=== PATIENT | female | born 1980 | race Caucasian/White ===

== ENCOUNTER 2022-01-19 08:15 | Emergency (ER) | payer OTHER | END 2022-01-19 10:04 | disposition left against medical advice (07) | LOC: ER1 08:15 | DX: T17.228A Food in pharynx causing other injury, initial encounter (principal); F17.200 Nicotine dependence, unspecified, uncomplicated; X58.XXXA Exposure to other specified factors, initial encounter | CPT/HCPCS: 99283 ==

== ENCOUNTER 2022-04-27 22:29 | Emergency (ER) | payer OTHER | END 2022-04-28 02:09 | disposition home or self-care (01) | LOC: ER1 22:29 | DX: S01.01XA Laceration without foreign body of scalp, initial encounter (principal); S01.81XA Laceration without foreign body of other part of head, initial encounter; W01.10XA Fall on same level from slipping, tripping and stumbling with subsequent striking against unspecified object, initial encounter | CPT/HCPCS: 12011; 70450; 72125; 99283 ==

== ENCOUNTER 2022-05-16 17:09 | Emergency (ER) | payer OTHER ==
[2022-05-16 17:54] LABS: HEMOGLOBIN 14.5 gm/dl (12.3-15.3); RED BLOOD COUNT 4.09 M/UL (4.00-5.10); WHITE BLOOD COUNT 7.6 K/UL (4.5-11.0)
[2022-05-16 18:03] LABS: BUN/CREATININE RATIO 12 (0-10)
== END 2022-05-16 18:50 | disposition home or self-care (01) ==
LOC: ER1 17:09
PROVIDERS: Nurse Practitioner
DX: R51.9 Headache, unspecified (principal); Z90.89 Acquired absence of other organs; W19.XXXA Unspecified fall, initial encounter
CPT/HCPCS: 70450; 80053; 80307; 81001; 85025; 99284

== ENCOUNTER 2022-08-10 19:25 | Emergency (ER) | payer OTHER ==
[2022-08-10 21:45] LABS: HEMOGLOBIN 13.6 gm/dl (12.3-15.3); RED BLOOD COUNT 3.91 M/UL (4.00-5.10); WHITE BLOOD COUNT 8.7 K/UL (4.5-11.0)
[2022-08-10 22:10] LABS: BUN/CREATININE RATIO 19 (0-10)
[2022-08-10] MEDS ORDERED: BACTROBAN OINT22 GM EXT (23:08)
[2022-08-10] MEDS ORDERED: IBUPROFEN600 MG PO (23:08)
[2022-08-10] MEDS ORDERED: CLINDAMYCIN HC300 MG PO (23:08)
== END 2022-08-10 23:16 | disposition home or self-care (01) ==
LOC: ER1 19:25
PROVIDERS: Physician Assistant Medical
DX: L03.011 Cellulitis of right finger (principal); F17.210 Nicotine dependence, cigarettes, uncomplicated; R40.2410 Glasgow coma scale score 13-15, unspecified time
CPT/HCPCS: 73130; 80053; 85025; 85652; 86140; 99283